=== PATIENT | female | born 1955 | race Caucasian/White ===

== ENCOUNTER 2020-11-01 18:48 | Inpatient (IN) | payer OTHER, SELFPAY ==
[~2020-11-01] VITALS: Ht 154.9 cm; Wt 102.0 kg
[2020-11-01] MEDS ORDERED: MORPHINE 2 MG/ML 1ML VIAL (J2270) IV PRN (20:45)
[2020-11-01] MEDS ORDERED: KETOROLAC 30 MG/ML 1ML VIAL IV PRN (20:45)
[2020-11-01] MEDS ORDERED: ONDANSETRON 4MG/2ML VIAL IV PRN (20:45)
[2020-11-01 21:56] VITALS: BP 130/93
[2020-11-01] MEDS: LR 1,000 ML IV SCH (22:08)
--- NOTE | 2020-11-02 04:15 | HPEPDOC ---
General Surgery H&P Date of Admission November 01, 2020 Attending Physician: MARY MCKEON MD History and Physical CHIEF COMPLAINT: abdominal pain, nausea, vomiting HISTORY OF PRESENT ILLNESS: Patient is a 65 year old female transferred from [facility] where she presented with midabdominal pain, nausea and vomiting. She was diagnosed to have evidence for small bowel obstruction, possibly from an incisional hernia ( though the provider wasnt sure). She was reported to have a small bowel movement while she was there and no vomiting experienced while she was in the ED, got a dose of dilaudid and zofran and felt better. Due to need for surgical evaluation, she was transferred to our hospital On speaking to her she had prior history of emergency laparotomy in 2011 for bowel perforation, ended up with some bowel resection and an ileostomy. This was then reversed 6 months after. She was told that she has extensive adhesions during the takeback but the ileostomy was reversed. Since then her bowel movements have been irregular, more on the liquid side, sometimes mulitple times a day. 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 She is able to tolerate regular food. She is not aware that she has a hernia. She does not note any gross bulging along her midline incision and at the prior ileostomy site. She does report that she would occasionally have this crampy abdominal pain, midabdomen and at the prior ileostomy site that would resolve by itself a couple time a year since her surgery. No documented episodes of obstruction. No hospitalizations for bowel obstruction. She has maintained her weight, denies any loss of weight. ALLERGIES: Please see below. HOME MEDICATIONS: Please see below. PAST MEDICAL HISTORY: 1.bowel perforation Denies any chronic medical problems, not on any regular medications PAST SURGICAL HISTORY: 1. history of exploratory laparotomy, bowel resection and ileostomy 2. reversal of ileostomy PERSONAL/SOCIAL HISTORY: former smoker, no longer smoking; occasional alcohol intake. REVIEW OF SYSTEMS: GENERAL: symptoms acute, was in baseline healthy prior to Tuesday morning.. HEENT: Denies blurred vision and double vision. Denies ear symptoms. Denies hoarseness. NECK: Denies any neck pain. CARDIOVASCULAR: Denies chest pain and palpitations. MUSCULOSKELETAL: Denies arthralgias, back pain and thrombophlebitis. SKIN: Denies rash. NEUROLOGIC: Denies headache, stroke and transient ischemic attack. PSYCHIATRIC: Denies anxiety and depression. ENDOCRINE: Denies thyroid disease. HEMATOLOGY/ONCOLOGY: Denies any bleeding or clotting disorder. HEART: Denies any chest pains, palpitations, paroxysmal dyspnea, orthopnea. PULMONARY: Denies chronic cough, dyspnea and wheezing. GASTROINTESTINAL: see hpi. GENITOURINARY: Denies dysuria, frequency, hematuria and nocturia. ENDOCRINE: Denies polydipsia, polyphagia, polyuria, heat or cold intolerance. INFECTIOUS: Denies any recent upper respiratory tract infection, UTI, need for use of antibiotics. NUTRITION: Reports good appetite. PHYSICAL EXAMINATION: VITAL SIGNS: Please see below. GENERAL APPEARANCE: Patient seen at bedside, appears comfortable. Awake, alert, oriented. HEENT: Normocephalic, atraumatic. [place] palpebral conjunctivae. Anicteric sclerae. Lips moist. CHEST: No chest wall abnormalities. Normal respiratory motion/effort. NECK: Supple. No thyromegaly. No lymphadenopathies. LUNGS: Lung sounds are clear to auscultation bilaterally. No wheezing appreciated. HEART: No chest wall abnormalities. Heart rate and rhythm are regular with no murmurs. ABDOMEN: obese abdomen, mildly distended, soft. She has a midline incision with widened scar, track branch along the incision line, prior rlq ileostomy site. No noticeable bulging. Between the ileosomy site and midline scar seems to be a hernia or noticeable weakness, though hard to confirm with her body habitus. mild discomfort on deep palpation, no tenderness.. SKIN: Warm, moist. EXTREMITIES: Extremities have no deformities. No edema identified. NEUROLOGICAL: awake, alert, oriented. ANCILLARIES: . LABORATORY DATA: Please see below. MICROBIOLOGY: Please see below. IMAGING: CT scan of the abdomen and pelvis This was performed at [facility] and I reviewed the disc. She has a hernia below the umbilicus which contains a loop of small bowel which appears distended. No free air, free fluid, no bowel wall thickening. The efferent limb of the bowel herniating is slightly decompress so the obstructing point probably at this area related to the hernia. IMPRESSION AND PLAN: Small bowel obstruction Incisional Hernia During her stay in the [facility] emergency room, she moved her bowels and felt better. At the time that I saw her, she looks comfortable, denies any nausea and is reporting flatus. She still is mildly distended. I could not exactly confirm the hernia site or if bowels are incarcerated (It does not feel like incarcerated bowels). I will get an xray for follow up. I will start her on clear liquids If her obstruction resolves, we will progress diet and just plan for outpatient surgery to repair her incisional hernia. I will need more details on the prior surgeries and what was done. It does not look like she has shortened bowel on CT, Vital Signs Vital Signs Date Time Temp Pulse Resp B/P (MAP) Pulse Ox O2 Delivery O2 Flow Rate FiO2 11/01/20 21:56 97.2 87 20 130/93 (105) 94 Room Air I&Os I&O- Last 24 Hours up to 6 AM 11/02/20 06:00 Intake Total 0 ml Balance 0 ml Home Medications No Active Prescriptions or Reported Meds Allergies Coded Allergies: No Known Allergies (Verified Allergy, Unknown, 11/01/20) A-FIB/CHADSVASC A-FIB History Current/History of A-Fib/PAF?: No Current PO Anticoag Therapy: No MARY MCKEON MD November 02, 2020 04:15
[2020-11-02] MEDS: LR 1,000 ML IV SCH ×3 (05:42→20:57)
[2020-11-02 06:00] VITALS: BP 142/85
[2020-11-02 06:59] LABS: BASO % 0.1 % (0.0-1.0); EOS # 0.1 10^3/uL (0.0-0.5); EOS % 0.8 % (0.0-3.0); HEMATOCRIT 44.4 % (36.0-47.0); HEMOGLOBIN 14.3 g/dl (12.0-15.5); LYMPH # 1.4 10^3/uL (1.5-5.0); LYMPH % 16.7 % (24.0-44.0); MEAN CORPUSCULAR HEMOGLOBIN 30.2 pg (27.0-33.0); MEAN CORPUSCULAR HGB CONC 32.2 g/dl (32.0-36.5); MEAN CORPUSCULAR VOLUME 93.7 fl (80.0-96.0); MONO # 0.7 10^3/uL (0.0-0.8); MONO % 8.8 % (2.0-8.0); NEUTROPHILS # 6.1 10^3/uL (1.5-8.5); NEUTROPHILS % 73.2 % (36.0-66.0); PLATELET COUNT, AUTOMATED 323 10^3/uL (150-450); RED BLOOD COUNT 4.74 10^6/uL (4.00-5.40); WHITE BLOOD COUNT 8.3 10^3/uL (4.0-10.0)
[2020-11-02 07:18] LABS: BLOOD UREA NITROGEN 9 MG/DL (7-18); CALCIUM LEVEL 8.6 MG/DL (8.8-10.2); CARBON DIOXIDE LEVEL 28 MEQ/L (21-32); CHLORIDE LEVEL 107 MEQ/L (98-107); CREATININE FOR GFR 0.64 MG/DL (0.55-1.30); GLOMERULAR FILTRATION RATE > 60.0 (>45); GLUCOSE, FASTING 103 MG/DL (70-100); POTASSIUM SERUM 3.9 MEQ/L (3.5-5.1); SODIUM LEVEL 139 MEQ/L (136-145)
[2020-11-02] MEDS: PANTOPRAZOLE 40MG VIAL (C9113 PER 1) IV SCH (09:40)
[2020-11-02] MEDS: ENOXAPARIN 40MG/0.4ML SYRINGE (J1650 PER 10MG) SC SCH (09:40)
--- NOTE | 2020-11-02 11:59 | REP ---
INDICATION: ffup sbo. COMPARISON: No comparison prior imaging is available.. TECHNIQUE: Two views, supine abdomen. FINDINGS: There are scattered surgical clips in the upper and lower abdomen. There are air-filled loops of small bowel in the central abdomen consistent with history of small bowel obstruction. There is a paucity of distal bowel gas. Flank stripes are intact. Psoas margins are symmetric. No mass, organomegaly, or pathologic calcification is seen. IMPRESSION: [id number] distention of air-filled loops of small bowel in the central abdomen with a paucity of distal gas consistent with small bowel obstruction. <Electronically signed by Jamie Ramirez > 11/02/20 [id number]
[2020-11-02 14:04] VITALS: BP 142/85
[2020-11-02] MEDS: ACETAMINOPHEN TAB 650MG DOSE (2X325MG) PO PRN ×2 (16:26→20:57)
[2020-11-02 22:00] VITALS: BP 142/84
[2020-11-03] MEDS: LR 1,000 ML IV SCH ×3 (05:03→20:45)
[2020-11-03 06:00] VITALS: BP 131/79
[2020-11-03] MEDS: PANTOPRAZOLE 40MG VIAL (C9113 PER 1) IV SCH (09:22)
[2020-11-03] MEDS: ENOXAPARIN 40MG/0.4ML SYRINGE (J1650 PER 10MG) SC SCH (09:23)
[2020-11-03] MEDS: GASTROGRAFIN SOLUTION 30ML PO SCH ×2 (10:46→11:26)
--- NOTE | 2020-11-03 11:23 | IPNPDOC ---
Text Note Date of Service The patient was seen on 11/03/20. NOTE Gen. surgery. Dr. Mckeon The patient is a 65-year-old female admitted with SBO possibly from incisional hernia. This morning, the patient states she is tolerating clear liquids but is still noticing abdominal pain and distention. She is having flatus and having liquid bowel movements. Afebrile. VSS Awake and alert sitting up in bed. No acute distress. MMM Lungs are clear to auscultation. S1-S2 regular rate rhythm Abdomen is obese, still with mild generalized distention, tenderness with palpation across the lower abdomen. No edema No bowel movements recorded yesterday. I/O not recorded. No new labs Assessment/plan SBO, incisional hernia The patient is reviewed and examined as per Dr. Mckeon this morning. Continue clear liquids. The patient is still having distention and pain across the lower abdomen area however she does report flatus and bowel movement. Difficult to palpate the h ernia. Will request CT abdomen/pelvis with by mouth and IV contrast to further evaluate. Further recommendations pending review of imaging as per Dr. Mckeon. VS,Fishbone, I+O VS, Fishbone, I+O Vital Signs Date Time Temp Pulse Resp B/P (MAP) Pulse Ox O2 Delivery O2 Flow Rate FiO2 11/03/20 06:00 97.5 69 18 131/79 (96) 95 Room Air Lena Fernandez November 03, 2020 11:23 MARY MCKEON MD November 05, 2020 07:38
[2020-11-03] MEDS ORDERED: ISOVUE-370 76% 100ML VIAL As Ordered ONE (11:55)
--- NOTE | 2020-11-03 12:48 | REPVR ---
PROCEDURE INFORMATION: Exam: CT Abdomen And Pelvis With Contrast Exam date and time: 11/03/2020 12:11 PM Age: 65 years old Clinical indication: Condition or disease; Other: Sbo TECHNIQUE: Imaging protocol: Computed tomography of the abdomen and pelvis with contrast. Radiation optimization: All CT scans at this facility use at least one of these dose optimization techniques: automated exposure control; mA and/or kV adjustment per patient size (includes targeted exams where dose is matched to clinical indication); or iterative reconstruction. Contrast material: ISOVUE 370; Contrast volume: 100 ml; Contrast route: INTRAVENOUS (IV); COMPARISON: PA Abdomen,Flat Plate KUB 11/02/2020 11:41 AM FINDINGS: Lungs: Bibasilar atelectasis seen. Liver: There is a moderate to severely fatty liver enlarged at 212 mm. Gallbladder and bile ducts: Normal. No calcified stones. No ductal dilation. Pancreas: Normal. No ductal dilation. Spleen: Normal. No splenomegaly. Adrenal glands: Normal. No mass. Kidneys and ureters: Nonobstructing left renal stone 6 mm. . No hydronephrosis. Stomach and bowel: There dilated small bowel loops including in the hernia measuring up 43 mm. Patient appears to be status post subtotal colectomy and this needs to be clinically correlated. Contrast is seen extending to the rectum. There is soft tissue irregularity in the left lower quadrant possibly from prior ostomy that has been taken down and this needs clinical correlation. The contrast extending into the hernia appears denser than the contrast exiting. Appendix: No evidence of appendicitis. Intraperitoneal space: Left upper quadrant surgical clips are noted. There is a small amount of fluid in the left upper quadrant. Vasculature: Unremarkable. No abdominal aortic aneurysm. Lymph nodes: Unremarkable. No enlarged lymph nodes. Urinary bladder: Unremarkable as visualized. Reproductive: Unremarkable as visualized. Bones/joints: There is severe degenerative disc disease L5/S1. Soft tissues: There is an anterior midline abdominal wall hernia just below the umbilicus. This contains small bowel loops as above. IMPRESSION: 1. There are dilated small bowel loops within anterior abdominal wall hernia. There is a small amount of ascites. However, there is complete obstruction as contrast is seen extending to the rectum in a patient appears status post subtotal colectomy without ostomy. Likely this is a partial obstruction. 2. Large fatty liver. 3. Nonobstructing renal stone. Electronically signed by: Erasmo Dahl On 11/03/2020 12:47:56 PM
[2020-11-03 14:00] VITALS: BP 146/81
[2020-11-03 22:00] VITALS: BP 134/76
[2020-11-04] MEDS: LR 1,000 ML IV SCH (04:45)
[2020-11-04 06:00] VITALS: BP 148/86
[2020-11-04] MEDS ORDERED: MOM 30ML SUSPENSION UDC PO ONE (07:30)
[2020-11-04] MEDS ORDERED: FLEET ENEMA PR ONE (08:00)
[2020-11-04] MEDS: PANTOPRAZOLE 40MG VIAL (C9113 PER 1) IV SCH (10:01)
[2020-11-04] MEDS: ENOXAPARIN 40MG/0.4ML SYRINGE (J1650 PER 10MG) SC SCH (10:01)
[2020-11-04 14:00] VITALS: BP 122/71
[2020-11-04 22:00] VITALS: BP 135/73
[2020-11-05 06:00] VITALS: BP 123/73
--- NOTE | 2020-11-05 07:41 | IPNPDOC ---
Text Note Date of Service The patient was seen on 11/04/20. NOTE Patient reports that after she was given fleets enema and milk of magnesia and this morning she had one large bowel movement and felt a lot better. She is passing flatus spontaneously. She denies any nausea. She has tolerated clear liquids for 2 days now. The discomfort over the lower abdomen is improved. Vital signs stable, afebrile On examination she is sitting up on the bed looks very comfortable. Abdominal exam shows a round, obese abdomen less distended than it was yesterday. The bogginess or fullness over the lower abdomen towards her right feels much better consistent with a reduced hernia content. She is nontender over the area Impression and plan Small bowel obstruction related to incarcerated loops of bowel in incisional hernia I discussed with her the results of the CT scan yesterday. It does turn down worker that she most likely have had a subtotal colectomy done and now appears to have an ileorectal anastomosis. Urinalysis CT scan that was done yesterday there are loops of bowel in the hernia itself with one loop appears dilated then another looped appears decompressed for at least normal. But the contrast did pass through beyond that area to the rectum so she does have a partial obstruction. Clinically she seems to be better and may have had reduced her obstruction. We will try her on soft diet. If she is able to tolerate this then we will discharge her home and bring her back in the clinic and plan for definitive therapy of her hernia. VS,Fishbone, I+O VS, Fishbone, I+O Vital Signs Date Time Temp Pulse Resp B/P (MAP) Pulse Ox O2 Delivery O2 Flow Rate FiO2 11/05/20 06:00 97.5 66 16 123/73 (90) 96 Room Air I&O- Last 24 Hours up to 6 AM 11/05/20 06:00 Intake Total 3300 ml Balance 3300 ml MARY MCKEON MD November 05, 2020 07:40
[2020-11-05] MEDS: ENOXAPARIN 40MG/0.4ML SYRINGE (J1650 PER 10MG) SC SCH (08:57)
[2020-11-05] MEDS: PANTOPRAZOLE 40MG VIAL (C9113 PER 1) IV SCH (08:58)
--- NOTE | 2020-11-06 09:29 | DS.PDOC ---
Discharge Summary General Date of Admission November 01, 2020 at 21:15 Date of Discharge 11/05/20 Discharge Summary PROCEDURES PERFORMED DURING STAY: None. ADMITTING DIAGNOSES: SBO Incisional hernia History of bowel perforation History of exploratory laparotomy, bowel resection and ileostomy, reversal of ileostomy Morbid obesity. BMI 42.5. DISCHARGE DIAGNOSES: SBO Incisional hernia History of bowel perforation History of exploratory laparotomy, bowel resection and ileostomy, reversal of ileostomy Morbid obesity. BMI 42.5. COMPLICATIONS/CHIEF COMPLAINT: Sbo, Incisional Hernia. HISTORY OF PRESENT ILLNESS: Patient is a 65 year old female transferred from [facility] where she presented with midabdominal pain, nausea and vomiting. She was diagnosed to have evidence for small bowel obstruction, possibly from an incisional hernia (though the provider wasnt sure). She was reported to have a small bowel movement while she was there and no vomiting experienced while she was in the ED, got a dose of dilaudid and zofran and felt better. Due to need for surgical evaluation, she was transferred to our hospital HOSPITAL COURSE: The patient was reviewed and examined as per Dr. Cook upon arrival to the [facility]. The patient was felt to have small bowel obstruction possibly related to incisional hernia. The patient was placed on clear liquids. On 11/03 she was still having distention and discomfort across the lower abdominal area. It was difficult to palpate the hernia. CT scan abdomen/pelvis with contrast was requested which was reviewed by Dr. Cook. Imaging indicated that she most likely have had a subtotal colectomy done and now appeared to have an ileorectal anastomosis. Imaging indicated there were loops of bowel in the hernia itself with one loop appears dilated then another looped appears decompressed or at least normal. But the contrast did pass through beyond that area to the rectum so she does have a partial obstruction. Clinically she seemed to be better and may have had reduced her obstruction. She was tried on soft diet. The patient tolerated soft diet and reported resolution of her discomfort. She was having bowel movements and flatus. She was felt stable for discharge 11/05/20 with plans for outpatient follow-up. DISCHARGE MEDICATIONS: Please see below. ALLERGIES: Please see below. PHYSICAL EXAMINATION ON DISCHARGE: VITAL SIGNS: Please see below. GENERAL: No acute distress HEENT: Moist mucous membranes CARDIOVASCULAR EXAMINATION: S1-S2 regular rate rhythm RESPIRATORY EXAMINATION: Clear to auscultation ABDOMINAL EXAMINATION: Obese but soft and nontender. Bowel sounds present. EXTREMITIES: No edema LABORATORY DATA: Please see below. IMAGING: IMPRESSION: 1. There are dilated small bowel loops within anterior abdominal wall hernia. There is a small amount of ascites. However, there is complete obstruction as contrast is seen extending to the rectum in a patient appears status post subtotal colectomy without ostomy. Likely this is a partial obstruction. 2. Large fatty liver. 3. Nonobstructing renal stone. Electronically signed by: Erasmo Dahl On 11/03/2020 12:47:56 PM DISCHARGE PLAN: Discharge home DISPOSITION: 01 Home, Self-Care. DISCHARGE INSTRUCTIONS: Activity as tolerated Soft diet Follow-up appointment with Dr. Cook in one week. DISCHARGE CONDITION: Stable TIME SPENT ON DISCHARGE: Greater than 30 minutes. Vital Signs/I&Os Vital Signs Date Time Temp Pulse Resp B/P (MAP) Pulse Ox O2 Delivery O2 Flow Rate FiO2 11/05/20 06:00 97.5 66 16 123/73 (90) 96 Room Air I&O- Last 24 Hours up to 6 AM 11/06/20 05:59 Intake Total 510 ml Balance 510 ml Laboratory Data Labs 24H Item Value Date Time White Blood Count 8.3 10^3/uL 11/02/20 0646 Red Blood Count 4.74 10^6/uL 11/02/20 0646 Hemoglobin 14.3 g/dl 11/02/20 0646 Hematocrit 44.4 % 11/02/20 0646 Mean Corpuscular Volume 93.7 fl 11/02/20 0646 Mean Corpuscular Hemoglobin 30.2 pg 11/02/20 0646 Mean Corpuscular Hemoglobin Concent 32.2 g/dl 11/02/20 0646 Red Cell Distribution Width 12.5 % 11/02/20 0646 Platelet Count 323 10^3/uL 11/02/20 0646 Sodium Level 139 MEQ/L 11/02/20 0646 Potassium Level 3.9 MEQ/L 11/02/20 0646 Chloride Level 107 MEQ/L 11/02/20 0646 Carbon Dioxide Level 28 MEQ/L 11/02/20 0646 Anion Gap 4 MEQ/L L 11/02/20 0646 Blood Urea Nitrogen 9 MG/DL 11/02/20 0646 Creatinine 0.64 MG/DL 11/02/20 0646 Glomerular Filtration Rate > 60.0 11/02/20 0646 Fasting Glucose 103 MG/DL H 11/02/20 0646 Calcium Level 8.6 MG/DL L 11/02/20 0646 Discharge Medications No Active Prescriptions or Reported Meds Allergies Coded Allergies: No Known Allergies (Verified Allergy, Unknown, 11/01/20) Lena Fernandez November 06, 2020 09:29
== END 2020-11-05 12:15 | disposition home or self-care (01) | DRG 394 ==
LOC: M MS5PR 21:15
PROVIDERS: ADMIT Surgery; ATTEND Surgery
DX: K43.0 Incisional hernia with obstruction, without gangrene (principal); Z68.41 Body mass index [BMI] 40.0-44.9, adult; E66.01 Morbid (severe) obesity due to excess calories; Z90.49 Acquired absence of other specified parts of digestive tract